=== PATIENT | female | born 1975 | race Caucasian/White ===

== ENCOUNTER 2017-07-12 09:45 | Inpatient (IN) | payer OTHER ==
--- NOTE | 2017-07-12 10:08 | PDOC ---
Attending Attestation - Physicial Exam PE: 07/12/17 13:22 GENERAL: Well developed, well nourished. Awake and alert. + Acute distress. +Tearful. HEENT: Normocephalic, atraumatic. PERRLA, EOMI. No conjunctival pallor. Sclera are non- icteric. Moist mucous membranes. Oropharynx is clear. NECK: Supple. Full ROM. No JVD. Carotid pulses 2+ and symmetric, without bruits. No thyromegaly. No lymphadenopathy. CARDIOVASCULAR: Regular rate and rhythm. No murmurs, rubs, or gallops. Distal pulses are 2+ and symmetric. PULMONARY: No evidence of respiratory distress. Lungs clear to auscultation bilaterally. No wheezing, rales or rhonchi. ABDOMINAL: +RUQ tenderness.+ R CVA tenderness. +R suprapubic tenderness. Soft. Non-tender. Non-distended. No rebound or guarding. No organomegaly. Normoactive bowel sounds. MUSCULOSKELETAL Normal range of motion at all joints. No bony deformities or tenderness. No CVA tenderness. EXTREMITIES: No cyanosis. No clubbing. No edema. No calf tenderness. SKIN: Warm and dry. Normal capillary refill. No rashes. No jaundice. NEUROLOGICAL: Alert, awake, appropriate. Cranial nerves 2-12 intact. No deficits to light touch and temperature in face, upper extremities and lower extremities. No motor deficits in the in face, upper extremities and lower extremities. Normoreflexic in the upper and lower extremities. Normal speech. Toes are downgoing bilaterally. Gait is normal without ataxia. PSYCHIATRIC: Cooperative. Good eye contact. Appropriate mood and affect. - Medical Decision Making 07/12/17 13:22 Documentation prepared by Jolly Camargo, acting as medical associate for Esmer Villa DO <Jolly Camargo - Last Filed: 07/12/17 13:22> - Resident Resident Name: Vijaya Gunter - ED Attending Attestation I have performed the following: I have examined & evaluated the patient, The case was reviewed & discussed with the resident, I agree w/resident's findings & plan, Exceptions are as noted - HPI HPI: 07/12/17 17:03 42yo female with acute onset of R flank pain. RUQ and RLQ and suprapubic pain. Assoc with nausea. no vomiting or diarrhea. Denies dysuria. No hematuria. No f/ c. No rash. States R pelvic pain is the worst site. State pain radiates from her back to her R knee. Denies prior hx of renal colic. Denies gall stones. Bedside ultrasound negative for hydronephrosis in kidneys or gall stones. No gallbladder wall thickening. No other complaints. - Medical Decision Making 07/12/17 11:20 42yo female presents to the ED with a 1 day hx of R sided abd pain- mostly in suprapubic and RLQ/R pelvis pain -labs -ua -bedside ultrasound negative for hydronephrosis or biliary disease. no gb wall thickening, no stones visualized. -concern for pyelo, uti, cystitis, renal colic, biliary colic, ruptured ovarian cyst -will start with pelvic ultrasound, however, if negative, will need ct abd/ pelvis. -pain control -ivf hydration, nausea control -continue to monitor and reassess 07/12/17 13:14 I, Dr. Esmer Villa, DO, attest that this document has been prepared under my direction and personally reviewed by me in its entirety. I further attest, that it accurately reflects all work, treatment, procedures and medical decision -making performed by me. 07/12/17 14:51 ultrasound reviewed, no acute intrapelvic path visualized. pt with elevated wbc and still with pain. Will obtain ct: abd pelvis for further eval 07/12/17 17:[address] result. pt signed out to the oncoming ED physician pending ct finding and re-eval. <Esmer Villa - Last Filed: 07/12/17 17:04>
[2017-07-12] MEDS ORDERED: KETOROLAC TROMETHAMINE 15 MG/ML VIAL IVPUSH ONE (10:22)
[2017-07-12] MEDS ORDERED: SODIUM CHLORIDE 0.9% 1000 ML INFUS.BAG IV ONE (10:22)
[2017-07-12] MEDS ORDERED: ONDANSETRON 4 MG/2 ML VIAL IVPUSH ONE (10:23)
[2017-07-12 11:11] LABS: BASOPHIL 0.4 % (0-2.0); EOSINOPHIL 0.3 % (0-4.5); MCH 28.4 pg (25.7-33.7); MCHC 32.5 g/dl (32.0-36.0); MEAN CELL VOLUME 87.5 fl (80-96); MEAN PLT VOLUME 10.6 fl (7.5-11.1); NEUTROPHILS 82.4 % (42.8-82.8); PH,URINE 6.5 (5.0-8.0); PLATELET COUNT 198 K/MM3 (134-434); RDW 12.7 % (11.6-15.6); URINE APPEARANCE CLEAR; URINE BILIRUBIN NEGATIVE (NEGATIVE); URINE BLOOD NEGATIVE (NEGATIVE); URINE COLOR LT. YELLOW; URINE GLUCOSE (UA) NEGATIVE (NEGATIVE); URINE KETONE NEGATIVE (NEGATIVE); URINE LEUK ESTERASE NEGATIVE (NEGATIVE); URINE NITRITE NEGATIVE (NEGATIVE); URINE PROTEIN NEGATIVE (NEGATIVE); URINE UROBILINOGEN 0.2 mg/dL (0.2-1.0); WHITE BLOOD COUNT 15.3 K/mm3 (4.0-10.0)
[2017-07-12] MEDS ORDERED: morphine CARPU-JECT 2 MG/1 ML DISP.SYRIN IVPUSH ONE ×2 (11:11→17:30)
--- NOTE | 2017-07-12 11:19 | PDOC ---
History of Present Illness <Renée Membreno - Last Filed: 07/12/17 20:14> - General History Source: Patient Exam Limitations: Language Barrier (Frisian speaking only, endorsement clerk phone used ) - History of Present Illness Initial Comments: 42yo F with no significant PMH presents c/o Right sided abdominal pain radiating from Right flank through vagina down to Right knee. Pain began yesterday, constant and sharp, rated 9/10. Pain is worsened with movement, not associated with eating. Pt has never had these symptoms before. Pt took 2 ibuprofen which relieved the pain for half an hour yesterday. Pt also c/o nausea sans vomiting, SOB/difficulty taking a full breath, and dysuria. Pt denies fever, hematuria, frequency. 07/12/17 11:13 <Vijaya Gunter - Last Filed: 07/13/17 07:43> - General Chief Complaint: Pain Stated Complaint: PAIN Time Seen by Provider: 07/12/17 10:07 Past History <Renée Membreno - Last Filed: 07/12/17 20:14> - Past Medical History Anemia: No Asthma: No Cancer: No Cardiac Disorders: No CVA: No COPD: No CHF: No Dementia: No Diabetes: No GI Disorders: No Disorders: No HTN: No Hypercholesterolemia: No Liver Disease: No Seizures: No Thyroid Disease: No - Surgical History Other Surgical History: 07/12/17 11:30 - Reproductive History LMP comment: >1yr, has a 6mo old baby she is - Psycho/Social/Smoking Cessation Hx Anxiety: No Suicidal Ideation: No Smoking History: Never smoked Have you smoked in the past 12 months: No Hx Alcohol Use: No Drug/Substance Use Hx: No Substance Use Type: None Hx Substance Use Treatment: No <Vijaya Gunter - Last Filed: 07/13/17 07:43> - Past Medical History Allergies/Adverse Reactions: Allergies Allergy/AdvReac Type Severity Reaction Status Date / Time No Known Drug Allergies Allergy Verified 07/12/17 09:46 Home Medications: Ambulatory Orders NK [No Known Home Medication] 07/12/17 Review of Systems - Review of Systems Able to Perform ROS?: Yes Is the patient limited Libyan proficient: Yes Constitutional: No: Diaphoresis, Fever HEENTM: No: Recent change in vision, Ear Pain, Nose Pain, Throat Pain Respiratory: Yes: Shortness of Breath. No: Cough, Orthopnea, Stridor, Wheezing Cardiac (ROS): No: Irregular Heart Rate, Lightheadedness, Palpitations ABD/GI: Yes: Nausea. No: Abdominal Distended, Constipated, Diarrhea, Vomiting : Yes: Dysuria, Flank Pain. No: Frequency, Hematuria Musculoskeletal: No: Joint Pain, Muscle Pain Integumentary: No: Dryness, Lesions, Rash Neurological: No: Weakness, Unsteady Gait, Dizziness <Vijaya Gunter - Last Filed: 07/13/17 07:43> *Physical Exam - Vital Signs Last Vital Signs Temp Pulse Resp BP Pulse Ox 99.3 F 87 22 139/73 100 07/12/17 09:48 07/12/17 17:26 07/12/17 17:26 07/12/17 17:26 07/12/17 17:26 <Renée Membreno - Last Filed: 07/12/17 20:14> - Vital Signs Last Vital Signs Temp Pulse Resp BP Pulse Ox 99.3 F 104 H 18 166/119 100 07/12/17 09:48 07/12/17 09:48 07/12/17 09:48 07/12/17 09:48 07/12/17 09:48 - Physical Exam General Appearance: Yes: Nourished, Appropriately Dressed, Apparent Distress HEENT: positive: EOMI, Normal Voice, Other (moist mucous membranes). negative: Pale Conjunctivae, Scleral Icterus (R), Scleral Icterus (L) Neck: positive: Trachea midline, Supple Respiratory/Chest: positive: Lungs Clear, Normal Breath Sounds. negative: Respiratory Distress, Accessory Muscle Use, Rhonchi, Stridor, Wheezing Cardiovascular: positive: Regular Rhythm, Regular Rate, S1, S2. negative: Edema , JVD, Murmur Gastrointestinal/Abdominal: positive: Soft, Other (suprapubic and RUQ/RLQ tender to palpation). negative: Distended, Rebound Musculoskeletal: positive: CVA Tenderness (R). negative: CVA Tenderness (L), Decreased Range of Motion Extremity: positive: Normal Range of Motion. negative: Pedal Edema, Swelling Integumentary: positive: Dry, Warm Neurologic: positive: Fully Oriented, Alert, Normal Mood/Affect, Normal Response <Vijaya Gunter - Last Filed: 07/13/17 07:43> ED Treatment Course - LABORATORY CBC & Chemistry Diagram: 07/12/17 10:55 07/12/17 10:55 - ADDITIONAL ORDERS Additional order review: Laboratory Results 07/12/17 07/12/17 10:55 10:55 Sodium 139 Potassium 4.3 Chloride 106 Carbon Dioxide 24 Anion Gap 9 BUN 8 Creatinine 0.5 L Creat Clearance w eGFR > 60 Random Glucose 97 D Calcium 9.0 Total Bilirubin 0.8 AST 39 H ALT 67 Alkaline Phosphatase 110 Total Protein 7.2 Albumin 3.5 Lipase 95 Urine Color Lt. yellow Urine Appearance Clear Urine pH 6.5 Ur Specific [place] 1.020 Urine Protein Negative Urine Glucose (UA) Negative Urine Ketones Negative Urine Blood Negative Urine Nitrite Negative Urine Bilirubin Negative Urine Urobilinogen 0.2 Ur Leukocyte Esterase Negative Urine HCG, Qual Negative 07/12/17 10:55 RBC 4.57 MCV 87.5 MCHC 32.5 RDW 12.7 MPV 10.6 Neutrophils % 82.4 D Lymphocytes % 10.4 D Monocytes % 6.5 Eosinophils % 0.3 D Basophils % 0.4 - Medications Given in the ED: ED Medications Discontinued Medications Generic Name Dose Route Start Last Admin Trade Name Nasimq PRN Reason Stop Dose Admin Ketorolac Tromethamine 15 mg 07/12/17 10:22 07/12/17 10:52 Toradol Injection - IVPUSH 07/12/17 10:23 15 mg ONCE ONE Administration Morphine Sulfate 2 mg 07/12/17 11:11 07/12/17 11:34 Morphine Injection - IVPUSH 07/12/17 11:12 2 mg ONCE ONE Administration Morphine Sulfate 2 mg 07/12/17 17:30 07/12/17 17:38 Morphine Injection - IVPUSH 07/12/17 17:31 2 mg ONCE ONE Administration Ondansetron HCl 4 mg 07/12/17 10:23 07/12/17 10:52 Zofran Injection IVPUSH 07/12/17 10:24 4 mg ONCE ONE Administration Sodium Chloride 1,000 ml 07/12/17 10:22 07/12/17 10:52 Normal Saline - IV 07/12/17 10:23 1,000 ml ONCE ONE Administration <Renée Membreno - Last Filed: 07/12/17 20:14> - LABORATORY CBC & Chemistry Diagram: 07/12/17 10:55 07/12/17 10:55 - ADDITIONAL ORDERS Additional order review: Laboratory Results 07/12/17 10:55 Urine Color Lt. yellow Urine Appearance Clear Urine pH 6.5 Urine Protein Negative Urine Glucose (UA) Negative Urine Ketones Negative Urine Blood Negative Urine Nitrite Negative Urine Bilirubin Negative Urine Urobilinogen 0.2 Ur Leukocyte Esterase Negative - Medications Given in the ED: ED Medications Discontinued Medications Generic Name Dose Route Start Last Admin Trade Name Aj PRN Reason Stop Dose Admin Ketorolac Tromethamine 15 mg 07/12/17 10:22 07/12/17 10:52 Toradol Injection - IVPUSH 07/12/17 10:23 15 mg ONCE ONE Administration Ondansetron HCl 4 mg 07/12/17 10:23 07/12/17 10:52 Zofran Injection IVPUSH 07/12/17 10:24 4 mg ONCE ONE Administration Sodium Chloride 1,000 ml 07/12/17 10:22 07/12/17 10:52 Normal Saline - IV 07/12/17 10:23 1,000 ml ONCE ONE Administration <Vijaya Gunter - Last Filed: 07/13/17 07:43> Medical Decision Making - Medical Decision Making 42yo F with no significant PMH presents c/o Right sided abdominal pain radiating from Right flank through vagina down to Right knee. (+) Right CVA tenderness. RUQ/RLQ and suprapubic regions tender to palpation. Pt also c/o nausea, SOB/difficulty taking a full breath. Ddx: nephrolithiasis, pyelonephrosis, ruptured ovarian cyst CBC with diff -> leukocytosis CMP -> wnl lipase -> wnl urine (-) U/A (-) for blood and UTI Toradol 15mg IVpush given for pain Zofran 4mg IVpush given for nausea NS 1 L bolus pelvic US ordered 07/12/17 11:38 Pain rated 8/10 after Toradol -> Morphine 2mg IVpush given 07/12/17 12:27 07/12/17 13:41 pelvic/transvaginal US - negative normal Ab/Pel CT with IV/PO contrast ordered 07/12/17 18:58 Radiology called in the critical finding of acute appendicitis on the Ab/Pel CT. Surgery called. 07/12/17 19:[address] Gonzalez (Surgery), who will perform surgery in the morning. Pt will be admitted to Hospitalist. blood type and screen, coags ordered npo cxr ekg <Vijaya Gunter - Last Filed: 07/13/17 07:43> *DC/Admit/Observation/Transfer - Discharge Dispostion Admit: Yes Decision to Admit order Date/Time: 07/12/17 20:14 <Renée Membreno - Last Filed: 07/12/17 20:14> - Discharge Dispostion Admit: Yes <Vijaya Gunter - Last Filed: 07/13/17 07:43> Diagnosis at time of Disposition: Acute appendicitis - Discharge Dispostion Condition at time of disposition: Guarded - Referrals
[2017-07-12] MEDS ORDERED: morphine CARPU-JECT 2 MG/1 ML DISP.SYRIN ONE ×2 (11:28→17:34)
[2017-07-12 11:51] LABS: SGOT/AST 39 U/L (15-37)
[2017-07-12 12:18] LABS: ALBUMIN 3.5 g/dl (3.4-5.0); ANION GAP 9 (8-16); CO2 24 mmol/L (21-32); GLUCOSE,RANDOM 97 mg/dL (74-106); SGPT/ALT 67 U/L (12-78)
[2017-07-12 12:21] LABS: ALK PHOS 110 U/L (45-117); BILIRUBIN,TOTAL 0.8 mg/dL (0.2-1.0); CREATININE 0.5 mg/dL (0.55-1.02); TOT PROT 7.2 g/dl (6.4-8.2)
--- NOTE | 2017-07-12 19:28 | PDOC ---
*Physical Exam - Vital Signs Last Vital Signs Temp Pulse Resp BP Pulse Ox 99.3 F 87 22 139/73 100 07/12/17 09:48 07/12/17 17:26 07/12/17 17:26 07/12/17 17:26 07/12/17 17:26 ED Treatment Course - LABORATORY CBC & Chemistry Diagram: 07/12/17 10:55 07/12/17 10:55 - ADDITIONAL ORDERS Additional order review: Laboratory Results 07/12/17 07/12/17 10:55 10:55 Sodium 139 Potassium 4.3 Chloride 106 Carbon Dioxide 24 Anion Gap 9 BUN 8 Creatinine 0.5 L Creat Clearance w eGFR > 60 Random Glucose 97 D Calcium 9.0 Total Bilirubin 0.8 AST 39 H ALT 67 Alkaline Phosphatase 110 Total Protein 7.2 Albumin 3.5 Lipase 95 Urine Color Lt. yellow Urine Appearance Clear Urine pH 6.5 Ur Specific [place] 1.020 Urine Protein Negative Urine Glucose (UA) Negative Urine Ketones Negative Urine Blood Negative Urine Nitrite Negative Urine Bilirubin Negative Urine Urobilinogen 0.2 Ur Leukocyte Esterase Negative Urine HCG, Qual Negative 07/12/17 10:55 RBC 4.57 MCV 87.5 MCHC 32.5 RDW 12.7 MPV 10.6 Neutrophils % 82.4 D Lymphocytes % 10.4 D Monocytes % 6.5 Eosinophils % 0.3 D Basophils % 0.4 - Medications Given in the ED: ED Medications Discontinued Medications Generic Name Dose Route Start Last Admin Trade Name Freq PRN Reason Stop Dose Admin Ketorolac Tromethamine 15 mg 07/12/17 10:22 07/12/17 10:52 Toradol Injection - IVPUSH 07/12/17 10:23 15 mg ONCE ONE Administration Morphine Sulfate 2 mg 07/12/17 11:11 07/12/17 11:34 Morphine Injection - IVPUSH 07/12/17 11:12 2 mg ONCE ONE Administration Morphine Sulfate 2 mg 07/12/17 17:30 07/12/17 17:38 Morphine Injection - IVPUSH 07/12/17 17:31 2 mg ONCE ONE Administration Ondansetron HCl 4 mg 07/12/17 10:23 07/12/17 10:52 Zofran Injection IVPUSH 07/12/17 10:24 4 mg ONCE ONE Administration Sodium Chloride 1,000 ml 07/12/17 10:22 07/12/17 10:52 Normal Saline - IV 07/12/17 10:23 1,000 ml ONCE ONE Administration Medical Decision Making - Medical Decision Making 07/12/17 19:28 Patient taken over from Dr. Gunter *DC/Admit/Observation/Transfer Diagnosis at time of Disposition: Acute appendicitis - Discharge Dispostion Condition at time of disposition: Guarded - Referrals Referrals: Nahed Orta MD [Primary Care Provider] - - Patient Instructions - Post Discharge Activity
[2017-07-12] MEDS ORDERED: LEVOFLOXACIN 500 MG IVPB 100 ML IVPB SCH (20:15)
[2017-07-12 20:21] LABS: INR 1.25 (0.82-1.09); PROTHROMBIN TIME (PATIENT) 13.8 SEC (9.98-11.88)
[2017-07-12 20:24] LABS: ACTIVATED PTT 34.6 SECONDS (26.9-34.4)
[2017-07-12] MEDS ORDERED: morphine CARPU-JECT 2 MG/1 ML DISP.SYRIN IVPUSH PRN (20:25)
[2017-07-12] MEDS ORDERED: KETOROLAC TROMETHAMINE 15 MG/ML VIAL IVPUSH PRN (20:25)
[2017-07-12] MEDS ORDERED: ONDANSETRON 4 MG/2 ML VIAL IVPB PRN (20:25)
--- NOTE | 2017-07-12 20:25 | HP ---
CHIEF COMPLAINT: RLQ abd pain PCP: None HISTORY OF PRESENT ILLNESS: 42 yo F currently w/o significant medical history presented to the ED with intractable abdominal pain x 1 day. The pain started yesterday around 11am when the patient was in library, constant, pressure-like, 9/10, radiates to her R lower back and R groin, worse with positional change, no alleviating factors, a/w nausea and chills. Denies fever, vomiting, chest pain, sob, urinary symptom, dietary change, recent travel, sick contact, diarrhea or constipation. ER course was notable for: (1) CT abd positive for acute appendicitis (2) Surgery consulted and appendectomy planned tomorrow (3) received levaquin and flagyl Recent Travel: Denies PAST MEDICAL HISTORY: None PAST SURGICAL HISTORY: 2 c-sections; [place] with complication of post-op suture infection and intra-abd bleeding, 2nd 6 months ago, uncomplicated Social History: Smoking: Denies Alcohol: Denies Drugs: Denies Family History: Non-contributory Allergies No Known Drug Allergies Allergy (Verified 07/12/17 09:46) HOME MEDICATIONS: Home Medications Medication Instructions Recorded NK [No Known Home Medication] 07/12/17 REVIEW OF SYSTEMS CONSTITUTIONAL: chills Absent: fever, diaphoresis, generalized weakness, malaise, loss of appetite, weight change HEENT: Absent: rhinorrhea, nasal congestion, throat pain, throat swelling, difficulty swallowing, mouth swelling, ear pain, eye pain, visual changes CARDIOVASCULAR: Absent: chest pain, syncope, palpitations, irregular heart rate, lightheadedness , peripheral edema RESPIRATORY: Absent: cough, shortness of breath, dyspnea with exertion, orthopnea, wheezing, stridor, hemoptysis GASTROINTESTINAL: abdominal pain, nausea Absent:, abdominal distension, vomiting, diarrhea, constipation, melena, hematochezia GENITOURINARY: Absent: dysuria, frequency, urgency, hesitancy, hematuria, flank pain, genital pain MUSCULOSKELETAL: Absent: myalgia, arthralgia, joint swelling, back pain, neck pain SKIN: Absent: rash, itching, pallor HEMATOLOGIC/IMMUNOLOGIC: Absent: easy bleeding, easy bruising, lymphadenopathy, frequent infections ENDOCRINE: Absent: unexplained weight gain, unexplained weight loss, heat intolerance, cold intolerance NEUROLOGIC: Absent: headache, focal weakness or paresthesias, dizziness, unsteady gait, seizure, mental status changes, bladder or bowel incontinence PSYCHIATRIC: Absent: anxiety, depression, suicidal or homicidal ideation, hallucinations. PHYSICAL EXAMINATION Last Vital Signs Temp Pulse Resp BP Pulse Ox 100.5 F H 94 H 18 121/69 97 07/12/17 21:30 07/12/17 21:30 07/12/17 21:30 07/12/17 21:30 07/12/17 20:45 GENERAL: Awake, alert, and fully oriented, in pain but no acute distress. HEAD: Normal with no signs of trauma. EYES: Pupils equal, round and reactive to light, extraocular movements intact, sclera anicteric, conjunctiva clear LUNGS: CTAB HEART: Tachycardic, normal S1 and S2 without murmur, rub or gallop. ABDOMEN: Soft, surgical scars, obese, tender to touch/palpate in R upper and lower quadrants, less tender in L quadrants, not distended, normoactive bowel sounds, voluntarily guarding, +ve Rovsing sign EXTREMITIES: No peripheral edema. PSYCHIATRIC: Cooperative. Good eye contact. Appropriate mood and affect. SKIN: Warm, dry, normal turgor, no rashes or lesions noted, normal capillary refill. CBCD WBC 15.3 K/mm3 (4.0-10.0) H D 07/12/17 10:55 RBC 4.57 M/mm3 (3.60-5.2) 07/12/17 10:55 Hgb 13.0 GM/dL (10.7-15.3) D 07/12/17 10:55 Hct 40.0 % (32.4-45.2) 07/12/17 10:55 MCV 87.5 fl (80-96) 07/12/17 10:55 MCHC 32.5 g/dl (32.0-36.0) 07/12/17 10:55 RDW 12.7 % (11.6-15.6) 07/12/17 10:55 Plt Count 198 K/MM3 (134-434) D 07/12/17 10:55 MPV 10.6 fl (7.5-11.1) 07/12/17 10:55 CMP Sodium 139 mmol/L (136-145) 07/12/17 10:55 Potassium 4.3 mmol/L (3.5-5.1) 07/12/17 10:55 Chloride 106 mmol/L (98-107) 07/12/17 10:55 Carbon Dioxide 24 mmol/L (21-32) 07/12/17 10:55 Anion Gap 9 (8-16) 07/12/17 10:55 BUN 8 mg/dL (7-18) 07/12/17 10:55 Creatinine 0.5 mg/dL (0.55-1.02) L 07/12/17 10:55 Creat Clearance w eGFR > 60 (>60) 07/12/17 10:55 Calcium 9.0 mg/dL (8.5-10.1) 07/12/17 10:55 Total Bilirubin 0.8 mg/dL (0.2-1.0) 07/12/17 10:55 AST 39 U/L (15-37) H 07/12/17 10:55 ALT 67 U/L (12-78) 07/12/17 10:55 Alkaline Phosphatase 110 U/L (45-117) 07/12/17 10:55 Total Protein 7.2 g/dl (6.4-8.2) 07/12/17 10:55 Albumin 3.5 g/dl (3.4-5.0) 07/12/17 10:55 Urine Test Results Urine Color Lt. yellow 07/12/17 10:55 Urine Appearance Clear 07/12/17 10:55 Urine pH 6.5 (5.0-8.0) 07/12/17 10:55 Ur Specific [place] 1.020 (1.005-1.025) 07/12/17 10:55 Urine Protein Negative (NEGATIVE) 07/12/17 10:55 Urine Glucose (UA) Negative (NEGATIVE) 07/12/17 10:55 Urine Ketones Negative (NEGATIVE) 07/12/17 10:55 Urine Blood Negative (NEGATIVE) 07/12/17 10:55 Urine Nitrite Negative (NEGATIVE) 07/12/17 10:55 Urine Bilirubin Negative (NEGATIVE) 07/12/17 10:55 Ur Leukocyte Esterase Negative (NEGATIVE) 07/12/17 10:55 IMAGING EKG: NSR, QTc wnl CXR on 07/12: no acute pathology CT abd on 07/12: acute appendicitis Transvaginal U/S on 07/12: unremarkable ASSESSMENT/PLAN: 42 F admitted to med-surg inpatient service for acute appendicitis. Sepsis 2/2 Acute appendicitis - Appendectomy scheduled tomorrow * EKG, t&t, coag - IVF - NPO - Morphine and toradol for pain control - Cont. levaquin and flagyl - f/u blood culture - Advised patient not to breastfeed for now FEN - NS 75cc/hr - Normal lytes - NPO Prophylaxis - DVT: SCDs - GI: not indicated Dispo - Pending appendectomy - Cont. to monitor on med-surg floor Kirill Rider, Medicine PGY-2 Pager: [phone] Visit type - Emergency Visit Emergency Visit: Yes ED Registration Date: 07/12/17 Care time: The patient presented to the Emergency Department on the above date and was hospitalized for further evaluation of their emergent condition. - New Patient This patient is new to me today: Yes Date on this admission: 07/12/17 - Critical Care Critical Care patient: No
[2017-07-12] MEDS ORDERED: METRONIDAZOLE 500 MG PREMIXED 100 ML IVPB ONE (20:33)
[2017-07-12] MEDS ORDERED: LEVOFLOXACIN 500 MG IVPB 100 ML IVPB ONE (20:33)
[2017-07-12] MEDS: METRONIDAZOLE 500 MG PREMIXED 100 ML IVPB SCH (20:39)
--- NOTE | 2017-07-12 22:50 | PN ---
Teaching Attending Note Name of Resident: Kirill Rider ATTENDING PHYSICIAN STATEMENT I saw and evaluated the patient. Chart, data, and imaging reviewed. I reviewed the resident's note and discussed the case with the resident. I agree with the resident's findings and plan as documented with modifications in the note below. SUBJECTIVE: 42yo F with PMHx of dyslipidemia c/o sharp RLQ abdominal pain radiating down to right groin and back. Pain began yesterday at 11am, constant and sharp, rated 9/ 10 at its worst. Pain is worsened with movement. Started by itself. CT scan of abdomen/pelvis in ER showed acute appendicitis. C/o nausea but no vomiting. NO diarrhea. OBJECTIVE: Last Vital Signs Temp Pulse Resp BP Pulse Ox 99.3 F 87 22 139/73 97 07/12/17 09:48 07/12/17 17:26 07/12/17 17:26 07/12/17 17:26 07/12/17 20:45 General- appears uncomfortable but nontoxic, obese HEENT - clear sclera, AT, no sinus tenderness Neck -supple, no masses cv-s1+s2+ RRR chest- cta b/l abdomen - tenderness to palpation R>L Skin - no rashes MSK - no joint erythema Abnormal Lab Results 07/12/17 07/12/17 07/12/17 10:55 10:55 20:00 WBC 15.3 H D INR 1.25 H D PTT (Actin FS) 34.6 H Creatinine 0.5 L AST [address] consistent with acute appendicitis EKG- NSR ASSESSMENT AND PLAN: Sepsis 2/2 to acute appendicitis. Meets SIRS criteria-found to have leukocytosis and was tachycardic. Hemodynamically stable. -admit to med/surg -IV fluid hydration -Morphine IV prn for pain control -blood cx x2 -lactate level -levofloxacin 750mg IV stat -metrondiazole 500mg IV q8hrs -ID consult for antibiotics -surgery consult for appendectomy -NPO past midnight -coags, type and screen -correct any electrolyte abnormalities -SCDs for DVT ppx
[2017-07-12] MEDS ORDERED: ACETAMINOPHEN 1000 MG/100 ML VIAL (NON FORMULARY) IVPB PRN (22:58)
[2017-07-12] MEDS ORDERED: SODIUM CHLORIDE 1,000 ML IV SCH (23:00)
[2017-07-13 00:57] VITALS: BMI 42.1
[2017-07-13] MEDS: METRONIDAZOLE 500 MG PREMIXED 100 ML IVPB SCH ×3 (01:50→17:57)
[2017-07-13] MEDS ORDERED: ROCURONIUM BROMIDE 50 MG/5 ML VIAL ONE (07:41)
[2017-07-13] MEDS ORDERED: PROPOFOL 20 ML ONE (07:41)
[2017-07-13] MEDS ORDERED: MIDAZOLAM HCL 2 MG/2 ML SINGLE DOSE VIAL ONE (07:41)
[2017-07-13] MEDS ORDERED: SUCCINYLCHOLINE CHLORIDE 200 MG/10 ML VIAL ONE (07:41)
[2017-07-13] MEDS ORDERED: DESFLURANE GAS 240 ML BOTTLE IH ONE (07:58)
[2017-07-13 08:10] LABS: MCH 29.3 pg (25.7-33.7); MCHC 33.3 g/dl (32.0-36.0); MEAN CELL VOLUME 87.9 fl (80-96); MEAN PLT VOLUME 10.1 fl (7.5-11.1); PLATELET COUNT 160 K/MM3 (134-434); WHITE BLOOD COUNT 10.3 K/mm3 (4.0-10.0)
[2017-07-13] MEDS ORDERED: ONDANSETRON 4 MG/2 ML VIAL ONE ×2 (08:10→08:42)
[2017-07-13] MEDS ORDERED: DEXAMETHASONE SOD PHOSPHATE 4 MG/1 ML VIAL ONE ×2 (08:10→08:42)
--- NOTE | 2017-07-13 08:10 | CONSULT ---
Consult Consult Specialty:: Surgery Reason for Consultation:: Abdominal pain - History of Present Illness History of Present Illness: 42 female presents to the ER for abdominal pain CT shows acute appendicitis Pain x 1-2 days No fevers - History Source History Provided By: Patient Limitations to Obtaining History: No Limitations - Past Medical History ...LMP: 08/29/15 ...LMP Comment: >1yr, has a 6mo old baby she is - Past Surgical History Past Surgical History: Yes: - Alcohol/Substance Use Hx Alcohol Use: No - Smoking History Smoking history: Never smoked Have you smoked in the past 12 months: No - Social History History of Recent Travel: No Home Medications - Allergies Allergies/Adverse Reactions: Allergies Allergy/AdvReac Type Severity Reaction Status Date / Time No Known Drug Allergies Allergy Verified 07/12/17 09:46 - Home Medications Home Medications: Ambulatory Orders NK [No Known Home Medication] 07/12/17 Family Disease History - Family Disease History Family History: Denies Review of Systems - Review of Systems Constitutional: denies: Chills, Fever Neck: reports: No Symptoms Cardiovascular: denies: Chest Pain Respiratory: denies: Cough Gastrointestinal: reports: Abdominal Pain. denies: Nausea, Vomiting Neurological: denies: Change in LOC Pain Intensity: 5 Physical Exam Vital Signs: Vital Signs Temperature 98.2 F 07/13/17 07:30 Pulse Rate 72 07/13/17 07:30 Respiratory Rate 20 07/13/17 07:30 Blood Pressure 137/77 07/13/17 07:30 O2 Sat by Pulse Oximetry (%) 98 07/12/17 22:00 Constitutional: Yes: Calm, Obese HENT: Yes: WNL Neck: Yes: Supple Cardiovascular: Yes: Regular Rate and Rhythm Respiratory: Yes: Regular Gastrointestinal: Yes: Soft, Abdomen, Obese, Tenderness (RLQ). No: Tenderness, Rebound Extremities: Yes: WNL Neurological: Yes: Alert, Oriented Labs: CBC, BMP 07/12/17 10:55 Imaging - Results Cat Scan: Image Reviewed Problem List - Problems (1) Acute appendicitis Code(s): K35.80 - UNSPECIFIED ACUTE APPENDICITIS Assessment/Plan 42 female with acute appendicitis NPO Antibiotics Laparoscopic possible open appendectomy Understands risks and benefits
[2017-07-13] MEDS ORDERED: ceFAZolin SODIUM 1 GM VIAL ONE (08:17)
[2017-07-13] MEDS ORDERED: ceFAZolin SODIUM 1 GM VIAL IVPB ONE (08:17)
[2017-07-13] MEDS ORDERED: BUPIVACAINE HCL/PF 0.5% (5MG/ML) 10 ML VIAL ONE (08:37)
[2017-07-13] MEDS ORDERED: NEOSTIGMINE METHYLSULFATE 0.5 MG/ML - 10 ML MDV ONE (08:54)
[2017-07-13] MEDS ORDERED: GLYCOPYRROLATE 0.2 MG/1 ML VIAL ONE (08:54)
[2017-07-13] MEDS ORDERED: PROMETHAZINE HCL 25 MG/1 ML VIAL IVPUSH PRN (09:17)
[2017-07-13] MEDS ORDERED: HYDROmorphone HCL CARPU-JECT 2 MG/1 ML DISP.SYRIN ONE (09:18)
--- NOTE | 2017-07-13 09:32 | OP ---
Operative Note - Note: Operative Date: 07/13/17 Pre-Operative Diagnosis: Acute appendicitis Operation: Laparoscopic appendectomy Post-Operative Diagnosis: Same as Pre-op Surgeon: Fermin Gonzalez Anesthesia: General Specimens Removed: Appendix Estimated Blood Loss (mls): 10 Operative Report Dictated: Yes
[2017-07-13] MEDS ORDERED: ONDANSETRON 4 MG/2 ML VIAL IVPB PRN (09:36)
[2017-07-13] MEDS ORDERED: ACETAMINOPHEN 1000 MG/100 ML VIAL (NON FORMULARY) IVPB PRN (09:36)
[2017-07-13] MEDS: HYDROmorphone HCL CARPU-JECT 1 MG/1 ML DISP.SYRIN IVPUSH PRN ×2 (09:49→09:59)
--- NOTE | 2017-07-13 10:21 | SPEC ---
DATE OF OPERATION: 07/13/2017 SURGEON: Fermin Gonzalez MD PREOPERATIVE DIAGNOSIS: Acute appendicitis. POSTOPERATIVE DIAGNOSIS: Acute appendicitis. PROCEDURE PERFORMED: Laparoscopic appendectomy. SPECIMEN: Appendix. ESTIMATED BLOOD LOSS: 10 mL. DRAINS: None. ANESTHESIA: GET. REASON FOR PROCEDURE: This is 42-year-old female who presented to the hospital because of abdominal pain. She was found to have evidence of appendicitis, both on exam and imaging. Because of this, she was consented for a laparoscopic, possible open appendectomy. RISKS AND BENEFITS: The risks and benefits were explained for a laparoscopic, possible open appendectomy. These included bleeding, infection, hernia, AK, DVT, PE, injury to surrounding structures (including the liver, colon, bowel, bladder, ureter), vessel injury, nerve injury, abscess formation, staple line leak, staple line dehiscence, as some of the possible complications. The patient understood and signed informed consent. DESCRIPTION OF PROCEDURE: The patient was placed supine on the operating room table. The patient underwent general endotracheal intubation. A Causey catheter was inserted by the nursing staff. The abdomen was prepped and draped in the usual sterile fashion. A timeo-out was performed. A periumbilical incision was made and a 5-mm optical trocar was inserted under direct visualization with the laparoscope. Pneumoperitoneum was then established. Subsequently, a 5-mm trocar was placed in the suprapubic area and a 12-mm trocar placed in the left lower quadrant. The patient was placed in the Trendelenburg [id number] position. After meticulous dissection, the appendix was identified. The appendix was freed from its surrounding structures and the appendix was retracted to the anterior abdominal wall. The base of the appendix was identified. A window was created within the mesentery near the base of the appendix. The appendix at its base was stapled using a laparoscopic Endo-LILLIAN stapler with a white load. The mesoappendix was then transected using a laparoscopic Endo-LILLIAN stapler with a white load. The appendix was placed in an EndoCatch bag. Inspection of both staple lines was identified. The staple line at the base of the appendix was noted to be fully intact. Hemostasis was noted at the staple line of the mesoappendix. Copious irrigation and suction was performed. The appendix was removed from the abdominal cavity and sent off the operative field as specimen. The patient was then placed in the cild-[id number] position. The 12-mm trocar was removed. The fascia at this site was closed using a 0 Vicryl suture with a Maxwell-Mai device. The patient was then placed supine. Pneumoperitoneum was desufflated and all further trocars were removed. All incision sites were irrigated and Marcaine was injected at all incision sites. The fascial suture was secured. All incision sites were closed using 4-0 Biosyn. Sterile dressings were applied. The patient tolerated the procedure well. The Causey catheter was removed and the patient was transferred to the recovery room in stable condition. Luis Enrique [id number]
[2017-07-13] MEDS: HEPARIN NA (PORCINE) 5,000 UNITS/ML 1ML VIAL SQ SCH ×2 (11:21→22:18)
[2017-07-13] MEDS: LEVOFLOXACIN 500 MG IVPB 100 ML IVPB SCH (11:23)
[2017-07-13] MEDS: SODIUM CHLORIDE 1,000 ML IV SCH (11:30)
[2017-07-13] MEDS: morphine CARPU-JECT 4 MG/1 ML DISP.SYRIN IVPUSH PRN ×2 (11:30→18:28)
--- NOTE | 2017-07-13 13:29 | EKG ---
Test Reason : Blood Pressure : / mmHG Vent. Rate : 090 BPM Atrial Rate : 090 BPM P-R Int : 136 ms QRS Dur : 086 ms QT Int : 348 ms P-R-T Axes : 059 047 047 degrees QTc Int : 425 ms NORMAL SINUS RHYTHM POSSIBLE LEFT ATRIAL ENLARGEMENT BORDERLINE ECG NO PREVIOUS ECGS AVAILABLE REPEAT EKG IF CLINICALLY INDICATED Confirmed by SHAKIRA ROPER MD ([id number]) on 07/13/2017 1:28:51 PM Referred By: Confirmed By:SHAKIRA ROPER MD
--- NOTE | 2017-07-13 18:16 | PN ---
Physical Exam: SUBJECTIVE: Patient seen and examined. She complains of lower abdominal pain. OBJECTIVE: Vital Signs Period Temp Pulse Resp BP Sys/Shane Pulse Ox Last 24 Hr 98.2 F-100.5 F 71-97 14-20 107-137/50-77 95-99 GENERAL: The patient is awake, alert, and fully oriented, in mild distress. LUNGS: Breath sounds equal, clear to auscultation bilaterally, no wheezes, no crackles, no accessory muscle use. HEART: Regular rate and rhythm, S1, S2 without murmur, rub or gallop. ABDOMEN: Soft, (+) suprapubic tenderness, nondistended, normoactive bowel sounds , no guarding, no rebound, no hepatosplenomegaly, no masses. EXTREMITIES: 2+ pulses, warm, well-perfused, no edema. Laboratory Results - last 24 hr 07/13/17 07/13/17 07/13/17 00:15 00:15 07:00 WBC 10.3 H D RBC 4.12 Hgb 12.1 Hct 36.2 MCV 87.9 MCH 29.3 MCHC 33.3 RDW 13.0 Plt Count 160 MPV 10.1 Lactic Acid 0.7 Troponin I < 0.02 Active Medications Generic Name Dose Route Start Last Admin Trade Name Freq PRN Reason Stop Dose Admin Heparin Sodium (Porcine) 5,000 unit 07/13/17 10:00 07/13/17 11:21 Heparin - SQ Not Given BID WILDER Metronidazole 100 mls @ 100 mls/hr 07/13/17 10:00 07/13/17 17:57 Flagyl 500mg Premixed Ivpb - IVPB 100 mls/hr Q8H-IV WILDER Administration Levofloxacin 100 mls @ 100 mls/hr 07/13/17 10:00 07/13/17 11:23 Levaquin 500 Mg Premixed Ivpb - IVPB 100 mls/hr DAILY WILDER Administration Sodium Chloride 1,000 mls @ 75 mls/hr 07/13/17 09:36 07/13/17 11:30 Normal Saline - IV 75 mls/hr ASDIR WILDER Administration Morphine Sulfate 2 mg 07/13/17 09:36 07/13/17 11:30 Morphine Injection - IVPUSH 2 mg Q6H PRN Administration PAIN Ondansetron HCl 4 mg 07/13/17 09:36 Zofran Injection IVPB Q6H PRN NAUSEA ASSESSMENT/PLAN: This is a 42 year old woman with no significant history who presented to the ER with right-sided abdominal pain. 1. Acute appendicitis - s/p laparoscopic appendectomy today - Continue Levaquin Flagyl - Tolerated clear liquids - advance as tolerated - Expect discharge tomorrow Visit type - Emergency Visit Emergency Visit: Yes ED Registration Date: 07/12/17 Care time: The patient presented to the Emergency Department on the above date and was hospitalized for further evaluation of their emergent condition. - New Patient This patient is new to me today: Yes Date on this admission: 07/13/17 - Critical Care Critical Care patient: No - Discharge Referral Referred to [facility] No
[2017-07-14] MEDS: morphine CARPU-JECT 4 MG/1 ML DISP.SYRIN IVPUSH PRN (00:31)
[2017-07-14] MEDS: SODIUM CHLORIDE 1,000 ML IV SCH ×2 (00:32→09:54)
[2017-07-14] MEDS: METRONIDAZOLE 500 MG PREMIXED 100 ML IVPB SCH ×2 (01:50→09:54)
[2017-07-14] MEDS ORDERED: INSULIN DETEMIR 100 UNITS/ML MDV SQ ONE (06:44)
[2017-07-14] MEDS ORDERED: PT OWN MED DRAWER 7, Y5N ONE (06:46)
[2017-07-14 07:29] LABS: BASOPHIL 0.3 % (0-2.0); MCH 28.8 pg (25.7-33.7); MCHC 32.8 g/dl (32.0-36.0); MEAN CELL VOLUME 87.7 fl (80-96); MEAN PLT VOLUME 9.8 fl (7.5-11.1); PLATELET COUNT 198 K/MM3 (134-434); RDW 12.7 % (11.6-15.6); WHITE BLOOD COUNT 13.5 K/mm3 (4.0-10.0)
[2017-07-14 08:15] LABS: CALCIUM 9.3 mg/dL (8.5-10.1); GLUCOSE,RANDOM 123 mg/dL (74-106)
--- NOTE | 2017-07-14 08:16 | PN ---
Progress Note (short form) - Note Progress Note: Anesthesia Post op Pt seen and examined S:alert and awake O: Vital Signs Temperature 98.7 F 07/14/17 06:00 Pulse Rate 72 07/14/17 01:52 Respiratory Rate 20 07/14/17 06:00 Blood Pressure 122/74 07/14/17 06:00 O2 Sat by Pulse Oximetry (%) 96 07/13/17 21:00 CBC, BMP 07/14/17 06:00 A/P: Current Active Problems Acute appendicitis (Acute) s/p lap appy Doing well post op Continue current care Amari Medrano MD
[2017-07-14 08:21] LABS: ANION GAP 9 (8-16); CO2 25 mmol/L (21-32); CREATININE 0.6 mg/dL (0.55-1.02)
[2017-07-14] MEDS: HEPARIN NA (PORCINE) 5,000 UNITS/ML 1ML VIAL SQ SCH (09:54)
[2017-07-14] MEDS: LEVOFLOXACIN 500 MG IVPB 100 ML IVPB SCH (09:55)
--- NOTE | 2017-07-14 13:07 | PN ---
Physical Exam: SUBJECTIVE: Patient seen and examined. She is feeling better today. OBJECTIVE: Vital Signs Period Temp Pulse Resp BP Sys/Shane Pulse Ox Last 24 Hr 98.1 F-98.7 F 71-78 18-20 116-122/63-82 96 GENERAL: The patient is awake, alert, and fully oriented, in no acute distress. LUNGS: Breath sounds equal, clear to auscultation bilaterally, no wheezes, no crackles, no accessory muscle use. HEART: Regular rate and rhythm, S1, S2 without murmur, rub or gallop. ABDOMEN: Soft, nontender, nondistended, normoactive bowel sounds, no guarding, no rebound, no hepatosplenomegaly, no masses. EXTREMITIES: 2+ pulses, warm, well-perfused, no edema. Laboratory Results - last 24 hr 07/14/17 07/14/17 06:00 06:00 WBC 13.5 H D RBC 4.10 Hgb 11.8 Hct 36.0 MCV 87.7 MCH 28.8 MCHC 32.8 RDW 12.7 Plt Count 198 D MPV 9.8 Neutrophils % 81.0 Lymphocytes % 12.8 D Monocytes % 5.9 Eosinophils % 0.0 D Basophils % 0.3 Sodium 143 Potassium 4.7 Chloride 109 H Carbon Dioxide 25 Anion Gap 9 BUN 15 D Creatinine 0.6 Random Glucose 123 H D Calcium 9.3 Active Medications Generic Name Dose Route Start Last Admin Trade Name Freq PRN Reason Stop Dose Admin Heparin Sodium (Porcine) 5,000 unit 07/13/17 10:00 07/14/17 09:54 Heparin - SQ 5,000 unit BID WILDER Administration Metronidazole 100 mls @ 100 mls/hr 07/13/17 10:00 07/14/17 09:54 Flagyl 500mg Premixed Ivpb - IVPB 100 mls/hr Q8H-IV WILDER Administration Levofloxacin 100 mls @ 100 mls/hr 07/13/17 10:00 07/14/17 09:55 Levaquin 500 Mg Premixed Ivpb - IVPB 100 mls/hr DAILY WILDER Administration Sodium Chloride 1,000 mls @ 75 mls/hr 07/13/17 09:36 07/14/17 09:54 Normal Saline - IV Not Given ASDIR WILDER Morphine Sulfate 2 mg 07/13/17 09:36 07/14/17 00:31 Morphine Injection - IVPUSH 2 mg Q6H PRN Administration PAIN Ondansetron HCl 4 mg 07/13/17 09:36 Zofran Injection IVPB Q6H PRN NAUSEA ASSESSMENT/PLAN: This is a 42 year old woman with no significant history who presented to the ER with right-sided abdominal pain. 1. Acute appendicitis - s/p laparoscopic appendectomy 07/13 - Continue Levaquin, Flagyl - Tolerated diet - Discharge when ok with surgery Visit type - Emergency Visit Emergency Visit: Yes ED Registration Date: 07/12/17 Care time: The patient presented to the Emergency Department on the above date and was hospitalized for further evaluation of their emergent condition. - New Patient This patient is new to me today: No - Critical Care Critical Care patient: No - Discharge Referral Referred to [facility] No
[2017-07-14 15:14] VITALS: BP 123/82; PULSE 79; TEMP 98.2
--- NOTE | 2017-07-14 16:01 | DS ---
Physical Exam: SUBJECTIVE: Patient seen and examined at bedside. No overnight events. No new complaints. Abdominal pain is minimal. Has passed gas and tolerated diet. Denies CP,NUR, SOB, palpitations or N/V. OBJECTIVE: Vital Signs Period Temp Pulse Resp BP Sys/Shane Pulse Ox Last 24 Hr 98.1 F-98.8 F 72-79 18-20 116-123/57-82 96 PHYSICAL EXAM GENERAL: AAO x3, NAD HEAD: NC/AT EYES: PERRL, EOMI, sclera anicteric, conjunctiva clear. ENT: moist mucous membranes. NECK: supple, no jvd LUNGS:CTAB, no wheezes, no crackles, no accessory muscle use. HEART: RRR, S1, S2 without murmur, rub or gallop. ABDOMEN: Soft, mild tenderness and port sites., nondistended, normoactive bowel sounds, no guarding, no rebound. EXTREMITIES: 2+ pulses, warm, well-perfused, no edema. NEUROLOGICAL: Cranial nerves II through XII grossly intact. Normal speech, gait not observed. PSYCH: Normal mood, normal affect. SKIN: Warm, dry, normal turgor, no rashes or lesions noted. surgical port sites appear clean/dry/intact. LABS Laboratory Results - last 24 hr 07/14/17 07/14/17 06:00 06:00 WBC 13.5 H D RBC 4.10 Hgb 11.8 Hct 36.0 MCV 87.7 MCH 28.8 MCHC 32.8 RDW 12.7 Plt Count 198 D MPV 9.8 Neutrophils % 81.0 Lymphocytes % 12.8 D Monocytes % 5.9 Eosinophils % 0.0 D Basophils % 0.3 Sodium 143 Potassium 4.7 Chloride 109 H Carbon Dioxide 25 Anion Gap 9 BUN 15 D Creatinine 0.6 Random Glucose 123 H D Calcium 9.3 IMAGING: * [id number] CT/ABDOMEN PELVIS CT WITH CONTR Right upper and right lower quadrant pain CT scan of the abdomen and pelvis following oral and intravenous contrast. Coronal and sagittal reformatted images were obtained 100 cc of Omnipaque 350 was intravenously injected Comparison: None available Visualized lung base appears unremarkable and the heart is within normal limits in size. Evaluation of the liver, spleen, pancreas, gallbladder, both adrenal glands and both kidneys appear unremarkable. Partially distended stomach limiting evaluation of its wall without gross thickening. There is no evidence of small bowel obstruction. Normal-appearing terminal ileum. The appendix is dilated measuring 13 mm in diameter with intraluminal air. Stranding of the surrounding fat is present consistent with early acute appendicitis a small appendicolith is present and is proximal portion measuring 7 mm. No extraluminal air or abscess formation is identified. There is a trace of free fluid in the right lower quadrant. The colon appears unremarkable. Partially distended urinary bladder without wall thickening. Normal size uterus. Enhanced normal size abdominal aorta down through its bifurcation. Visualized osseous structures appear intact. IMPRESSION: Findings compatible with acute appendicitis with an appendicolith measuring approximately 7 mm in its proximal portion. No extraluminal air or abscess formation is identified. A preliminary report was forwarded by the [employer] service, [facility]IST[facility] Reported By: Gopi Cervantes MD 07/13/17 1326 HOSPITAL COURSE: 42 yo F currently w/o significant medical history presented to the ED with intractable abdominal pain x [address] was positive for acute appendicitis. Patient was started on IV antibiotics and seen by surgery. Laparoscopic appendectomy was performed the next day. Patient tolerated the procedure well. She tolerated advancement of diet. Pain was well controlled. She will be discharged home with one week follow up with surgeon Dr. Gonzalez. Also she will be given five day course of oral antibiotics. She is instructed to abstain from breast feeding will completing antibiotic. She is stable at the time of discharge and instructed to return to ED if abdominal pain worsens or fever/chills develop. Date of Admission:07/12/17 Date of Discharge: 07/14/17 Minutes to complete discharge: 44 Discharge Summary Reason For Visit: ACUTE APPENDICITIS Current Active Problems Acute appendicitis (Acute) Condition: Guarded - Instructions Diet, Activity, Other Instructions: You need to follow up with Dr. Gonzalez in one week. You will need to take the antibiotics as directed for 5 days. The Levaquin is once a day and the Metronidazole in three times a day. You should not breast feed while taking these medications. Make sure to discharge breast milk after pumping. You can eat a regular diet. Increase activity as tolerated. If you develop increased pain or fever/chills please return to ED immediately. [place] instructions: Necesitas hacer un seguimiento con el Dr. Gonzalez en loc semana. Tendr que selene los antibiticos segn las indicaciones chevy 5 garcia. El Levaquin es loc vez al da y el Metronidazole en kavya veces al da. No debe ellie pecho al lakeisha mientras est tomando estos medicamentos. Asegrese de descargar leche materna despus del bombeo. Usted puede comer loc dieta regular. Aumentar la actividad segn lo tolerado. Si usted desarrolla un aumento del dolor o fiebre / escalofr os por favor regrese a la DE inmediatamente. Referrals: Fermin Gonzalez MD [Staff Physician] - Nahed Orta MD [Primary Care Provider] - - Home Medications Comprehensive Discharge Medication List: Ambulatory Orders Docusate Sodium [Colace -] 100 mg PO TID #90 capsule 07/13/17 Oxycodone HCl/Acetaminophen [Percocet 5-325 mg Tablet] 1 - 2 tab PO Q6H #28 tab MDD 4 07/13/17 Levofloxacin [Levaquin -] 500 mg PO DAILY #5 tablet 07/14/17 Metronidazole [Flagyl -] 500 mg PO Q8H #15 tablet 07/14/17 This patient is new to me today: Yes Date on this admission: 07/14/17 Emergency Visit: Yes ED Registration Date: 07/12/17 Care time: The patient presented to the Emergency Department on the above date and was hospitalized for further evaluation of their emergent condition. Critical Care patient: No - Discharge Referral Referred to [facility] No
--- NOTE | 2017-07-16 14:39 | PATH ---
Surgical Pathology Report Patient Name: CANDELARIA GIFFORD Med. Rec. #: [id number] /Age/Gender: 1975 (Age: 42) / F Account: [id number] Location: [facility] MED/SURG Taken: 07/13/2017 Received: 07/15/2017 Reported: 07/16/2017 Physicians: Fermin Gonzalez M.D. Specimen(s) Received APPENDIX Clinical History Acute appendicitis Final Diagnosis APPENDIX, APPENDECTOMY: MARKED ACUTE HEMORRHAGIC APPENDICITIS AND PERIAPPENDICITIS. Electronically Signed Terry Lewis M.D. Gross Description Received in formalin, labeled "appendix" is a 6.5 cm in length vermiform appendix with a stapled margin of resection and moderate attached fat. The serosa is bermudez-tineo with attached exudate. Sectioning reveals a focally hemorrhagic lumen. The wall of the appendix averages 0.1 cm in thickness. Stiff St[employer] Washer sections are submitted in one cassette. 07/15/2017 saudi07/15/2017
== END 2017-07-14 18:32 | disposition home or self-care (01) | DRG 225 ==
LOC: JER 09:45 → JERBED 20:14 → J8W 22:31
PROVIDERS: ADMIT Internal Medicine; ATTEND Internal Medicine
PROC: 0DTJ4ZZ Resection of Appendix, Percutaneous Endoscopic Approach (ICD-10-PCS; principal; 2017-07-13 08:15)
DX: K35.89 Other acute appendicitis (principal); A41.9 Sepsis, unspecified organism; E66.01 Morbid (severe) obesity due to excess calories; Z68.41 Body mass index [BMI] 40.0-44.9, adult
CPT/HCPCS: 36415; 71010-TC; 74177-TC; 76830-TC; 80048; 80053; 81003; 83605; 83690; 84484; 84703; 85025; 85027; 85610; 85730; 86850; 86900; 86901; 87040; 88304-TC; 93005; 93010; 94010; 94760; 99285-25; J1644